=== PATIENT | male | born 1950 | race Caucasian/White ===

== ENCOUNTER → 2023-02-10 | Outpatient (CLI) | payer MEDICARE, OTHER | LOC: ORTHO 09:34 | PROVIDERS: ATTEND Orthopaedic Surgery | DX: M17.12 Unilateral primary osteoarthritis, left knee (principal) | CPT/HCPCS: 99203 ==

== ENCOUNTER → 2023-03-24 | Outpatient (CLI) | payer MEDICARE, OTHER | LOC: ORTHO 10:24 | PROVIDERS: ATTEND Orthopaedic Surgery | DX: M17.12 Unilateral primary osteoarthritis, left knee (principal) | CPT/HCPCS: 99213 ==